=== PATIENT | male | born 1970 | race Hispanic/Latino ===

== ENCOUNTER 2017-09-08 08:42 | Outpatient (CLI) | payer OTHER ==
[2017-09-08 10:20] LABS: Hemoglobin 15.4 g/dL (14.0-18.0); Mean Corpuscular HGB CONC 33.4 g/dL (32.0-36.0); Mean Corpuscular Hemoglobin 29.3 pg (27.0-31.0); Mean Corpuscular Volume 87.7 fl (80.0-94.0); Mean Platelet Volume 7.9 fL (7.4-10.4); Platelet Count 249 thou/uL (130-400); RBC Distribution Width 12.7 % (11.5-14.5); Red Blood Cell (RBC) Count 5.26 mill/uL (4.70-6.10); White Blood Cell (WBC) Count 7.5 thou/uL (4.8-10.8)
[2017-09-08 10:34] LABS: Anion Gap 14 mmol/L (10-20); BUN (Urea Nitrogen) 12 mg/dL (8.9-20.6); Calc. Creatinine Clearance 0 mL/min (70-130); Calcium 9.7 mg/dL (7.8-10.44); Carbon Dioxide 28 mmol/L (22-29); Chloride 101 mmol/L (98-107); Estimated GFR-MDRD Greater than 90; Glucose 90 mg/dL (70-105); Potassium 3.8 mmol/L (3.5-5.1); Sodium 139 mmol/L (136-145)
[2017-09-08 10:38] LABS: PTT 29.8 SEC (22.9-36.1); Prothrombin Time 13.1 SEC (12.0-14.7)
--- NOTE | 2017-09-08 16:20 | EKG ---
Test Reason : Blood Pressure : / mmHG Vent. Rate : 063 BPM Atrial Rate : 063 BPM P-R Int : 140 ms QRS Dur : 106 ms QT Int : 376 ms P-R-T Axes : -02 101 -20 degrees QTc Int : 384 ms Normal sinus rhythm Non-specific intra-ventricular conduction delay Rightward axis T wave abnormality, consider inferior ischemia Abnormal ECG Confirmed by LUCILLE COOPER ([id number]) on 09/08/2017 4:20:06 PM Referred By: DESIRE Confirmed By:LUCILLE COOPER
== END 2017-09-08 08:43 | disposition home or self-care (01) ==
LOC: LABBT 08:42
PROVIDERS: ATTEND Surgery
DX: Z01.818 Encounter for other preprocedural examination (principal); M54.16 Radiculopathy, lumbar region; M51.26 Other intervertebral disc displacement, lumbar region
CPT/HCPCS: 80048; 85027; 85610; 85730; 93005; 93010

== ENCOUNTER 2017-09-14 18:16 | Day surgery (SDC) | payer OTHER ==
[~2017-09-14 18:16] MED LIST: Acetaminophen 325 MG TAB PO PRN; Acetaminophen/Codeine 30-300mg Tablet PO PRN; Bacitracin Zinc Ointment 30 gm TUBE ONE; Clindamycin/D5W 900 mg/50 ml Premix Bag ONE; Famotidine/PF 20 mg/2ml Vial ONE; Fentanyl 100 MCG/2 ML VIAL ONE; Levofloxacin 500 mg/D5W 100 ml Premix Bag ONE; Lidocaine 1% PF 5 ML VIAL ONE; Midazolam HCl 2 mg/2 ml Vial ONE; Morphine 4 MG/ML VIAL SLOW IVP PRN; Ondansetron HCl/PF 4 MG/2 ML Vial IVP PRN; Ondansetron PF 4 MG/2 ML Vial ONE; PROPOFOL 200 MG/20 ML VIAL ONE; Promethazine HCl 25 MG/ML VIAL IM PRN; Promethazine HCl 25 MG/ML VIAL SLOW IVP PRN; Sodium Chloride 0.9% 1,000 ML IV SCH; Thrombin 5000 UNITS/5 ML VIAL ONE; ePHEDrine/0.9% NaCl/PF SYRINGE 50 mg/10 ml ONE; traMADol HCl 50 MG TAB PO PRN
[2017-09-14] MEDS ORDERED: Fentanyl 100 MCG/2 ML VIAL ONE ×2 (18:29→18:46)
[2017-09-14] MEDS: tiZANidine HCl 4 MG TAB PO PRN (21:18)
[2017-09-14] MEDS: HYDROcodone/Acetaminophen 7.5/325 mg Tablet PO PRN (21:21)
[2017-09-15 00:06] VITALS: BMI 33.4
[2017-09-15 00:16] VITALS: TEMP 98.3
[2017-09-15] MEDS: Clindamycin/D5W 900 MG in Premix Bag 1 BAG IVPB SCH ×2 (00:52→08:45)
[2017-09-15] MEDS: tiZANidine HCl 4 MG TAB PO PRN (06:00)
[2017-09-15 08:51] VITALS: BP 111/71
[2017-09-15] MEDS: HYDROcodone/Acetaminophen 7.5/325 mg Tablet PO PRN (09:40)
--- NOTE | 2017-09-15 19:53 | PRG ---
DATE OF SERVICE: 09/15/2017 Marvel Rosario PA-C dictating for Dr. Jc Grover. Mr. Wells is postoperative day #1, having undergone a right L4-L5 hemilaminotomy and diskectomy. T he patient states significant improvement in his right lower extremity pain postoperatively. He stat es that his pain is still present, but significantly improved when compared to preoperative symptoms. He has met discharge criteria and we will plan for discharge later today. He has good strength in the bilateral lower extremities with intact sensation to light touch. I have reviewed appropriate po stoperative activity restrictions with both the patient and his family, who helped to translate for m e as well. They understand to call the office with any questions or concerns, otherwise we will plan for dismissal later today. This is a late dictation. The patient was seen today at 8:00 a.m.
--- NOTE | 2017-09-16 10:44 | OP ---
DATE OF PROCEDURE: 09/14/2017 OR 12. WOUND TYPE: Type 1 wound. SURGEON: Jc Grover M.D. DEPOT MANAGER: Marvel Rosario PA-C. PREPROCEDURE DIAGNOSIS: Right L4-L5 disk extrusion with right L5 radiculopathy. POSTPROCEDURE DIAGNOSIS: Right L4-L5 disk extrusion with right L5 radiculopathy. PROCEDURES: 1. Right L4-L5 hemilaminotomy, foraminotomy, and diskectomy. 2. Use of operative microscope for microdissection. DESCRIPTION OF PROCEDURE: After informed consent was obtained from the patient, the patient brought to the OR and placed on anesthesia, was positioned prone on the operating room table. All appropriat e points were padded. We identified the L4-L5 segment. This region was sterilely cleansed, prepared , and draped. Proper patient pause and identification was carried out. The wound was then opened wi th a combination of sharp, monopolar and blunt dissection. The right L4-L5 segment exposed. Localiz ation film confirmed our area of interest. Microscope was brought in the field. A right L4-L5 hemil aminotomy and foraminotomy was performed working over the shoulder of the traversing right L5 nerve r oot. We identified disk material. This was removed with excellent decompression of the right L4 and right L5 nerve roots. Copious irrigation occurred throughout, hemostasis was maximized. The wound was closed in anatomic layers following the sprinkling of vancomycin powder. The patient then emerge d from anesthesia.
== END 2017-09-15 10:37 | disposition home or self-care (01) ==
LOC: SDC/OP 18:16 → SURG B 19:39 → SDC/OP 09-15 10:37
PROVIDERS: ATTEND Surgery
PROC: 0SB20ZZ Excision of Lumbar Vertebral Disc, Open Approach (ICD-10-PCS; principal; 2017-09-14)
PROC: 01NB0ZZ Release Lumbar Nerve, Open Approach (ICD-10-PCS; principal; 2017-09-14)
DX: M51.16 Intervertebral disc disorders with radiculopathy, lumbar region (principal); Z79.899 Other long term (current) drug therapy; Z88.0 Allergy status to penicillin
CPT/HCPCS: 76001; 96374; J0131; J1956; J2001; J2250; J2270; J2405; J2704; J3010; J3370; J3490; S0028